=== PATIENT | female | born 1985 | race Caucasian/White ===

== ENCOUNTER 2021-05-17 16:39 | Emergency (ER) | payer SELFPAY ==
[~2021-05-17] VITALS: Ht 160 cm; Wt 63.5 kg
[2021-05-17 17:47] VITALS: BP 120/74
[2021-05-17] MEDS ORDERED: KETOROLAC 30 MG/ML VIAL IM ONE (18:05)
[2021-05-17] MEDS ORDERED: IBUP-1842 PO (18:49)
[2021-05-17] MEDS ORDERED: KETOROLAC 30 MG/ML VIAL ONE (19:20)
[2021-05-17 19:24] VITALS: BP 120/74
== END 2021-05-17 19:24 | disposition home or self-care (01) ==
LOC: MED 16:39
DX: S80.11XA Contusion of right lower leg, initial encounter (principal); M79.601 Pain in right arm; W18.39XA Other fall on same level, initial encounter; Y93.89 Activity, other specified; Y92.89 Other specified places as the place of occurrence of the external cause; Y99.8 Other external cause status
CPT/HCPCS: 72100; 73560; 73590; 81025; 96372; 99284; J1885

== ENCOUNTER 2021-12-15 17:40 | Emergency (ER) | payer MEDICAID ==
[~2021-12-15] VITALS: Ht 162.6 cm; Wt 67.1 kg
[~2021-12-15 17:40] MED LIST: IBUP-1842 PO
[2021-12-15 17:44] VITALS: BP 120/91
--- NOTE | 2021-12-15 17:50 | NUR ---
36 Y/O F AMBULATED TO BED 4, 11 WEEKS PREG, C/O N/V X2 DAYS WITH LIHTHEADEDNESS AND WEAK. PT STATED "SHE FEELS LIKE SHE IS GOING TO FALL OVER." PT PMH: [facility] MATH[facility]U
--- NOTE | 2021-12-15 18:12 | NUR ---
DR ODEN AT BEDSIDE FOR MSE
[2021-12-15] MEDS ORDERED: TETRACAINE HCL/PF 0.5% OPTH 4 ML BTL OP ONE (18:35)
[2021-12-15] MEDS ORDERED: METOCLOPRAMIDE 10 MG/2 ML INJ VIAL IVP ONE (18:35)
[2021-12-15] MEDS ORDERED: FLUORESCEIN OPTH STRIP 1 MG OP ONE (18:35)
[2021-12-15] MEDS ORDERED: diphenhydrAMINE 50 MG/ML VIAL IVP ONE (18:35)
[2021-12-15] MEDS ORDERED: NACL 0.9% 1,000 ML IV ONE (18:35)
[2021-12-15] MEDS ORDERED: ACETAMINOPHEN EXTRA STRENGTH 500 MG TAB PO ONE (18:35)
[2021-12-15 19:20] LABS: BASOPHILS % (AUTO) 0.2 % (0.0-2.0); EOSINOPHILS % (AUTO) 0.4 % (0.0-4.0); HEMATOCRIT 30.3 % (36-48); HEMOGLOBIN 9.6 g/dL (12.0-16.0); LYMPHOCYTES # (AUTO) 1.2 K/uL (2.5-16.5); LYMPHOCYTES % (AUTO) 19.1 % (20.5-51.1); MEAN CORPUSCULAR HEMOGLOBIN 23 pg (27-31); MEAN CORPUSCULAR HGB CONC 32 g/dL (33-37); MEAN CORPUSCULAR VOLUME 72.3 fL (80-94); MONOCYTES # (AUTO) 0.4 K/uL (0.8-1.0); MONOCYTES % (AUTO) 6.5 % (1.7-9.3); NEUTROPHILS # (AUTO) 4.5 K/uL (1.8-7.7); NEUTROPHILS % (AUTO) 73.8 % (42.2-75.2); PLATELET COUNT (AUTO) 235 K/uL (140-450); RED BLOOD CELL COUNT(AUTO) 4.19 MIL/uL (4.20-5.40); RED CELL DISTRIBUTION WIDTH 18.2 % (11.6-13.7); WHITE BLOOD COUNT (AUTO) 6.1 K/uL (4.8-10.8)
[2021-12-15 19:20] LABS: BILIRUBIN,URINE NEGATIVE (NEGATIVE); BLOOD, URINE NEGATIVE (NEGATIVE); COLOR,URINE YELLOW (YELLOW); LEUKOCYTE ESTERASE ,URINE 3+ (NEGATIVE); NITRITE, URINE NEGATIVE (NEGATIVE); PH,URINE 8.5 (5.0-9.0); UGLUCOSE NEGATIVE (NEGATIVE)
[2021-12-15 19:22] LABS: APPEARANCE,URINE CLOUDY (CLEAR)
--- NOTE | 2021-12-15 19:22 | NUR ---
Pt report given to CEE Wilson. Transfer of care at this time.
[2021-12-15 19:33] LABS: RBC,URINE 0-5 /HPF (0-5)
[2021-12-15 19:37] LABS: ANION GAP 15.1 (8-16); CARBON DIOXIDE 24.3 mmol/L (21-32); CREATININE 0.5 mg/dL (0.6-1.3); POTASSIUM 3.4 mmol/L (3.5-5.1)
[2021-12-15 19:42] LABS: ALBUMIN 3.7 g/dL (3.4-5.0); TOTAL BILIRUBIN 0.3 mg/dL (0.0-1.0)
[2021-12-15] MEDS ORDERED: diphenhydrAMINE 50 MG/ML VIAL ONE (19:54)
[2021-12-15] MEDS ORDERED: ACETAMINOPHEN EXTRA STRENGTH 500 MG TAB ONE (19:54)
[2021-12-15] MEDS ORDERED: FLUORESCEIN OPTH STRIP 1 MG ONE (19:55)
[2021-12-15] MEDS ORDERED: METOCLOPRAMIDE 10 MG/2 ML INJ VIAL ONE (19:55)
[2021-12-15] MEDS ORDERED: TETRACAINE HCL/PF 0.5% OPTH 4 ML BTL ONE (19:56)
[2021-12-15] MEDS ORDERED: cephALEXin 500 MG CAP PO ONE (20:00)
[2021-12-15] MEDS ORDERED: POTASSIUM CHLORIDE 10 MEQ TABER PO ONE (20:00)
--- NOTE | 2021-12-15 20:15 | NUR ---
Dr. Osborn examining patient.
[2021-12-15] MEDS ORDERED: DOXY1TCP PO (20:29)
[2021-12-15] MEDS ORDERED: CEPH-588 PO (20:29)
--- NOTE | 2021-12-15 20:33 | NUR ---
RESTING COMFORTABLY. DR ODEN AT BEDSIDE FOR EXAM
== END 2021-12-15 20:40 | disposition home or self-care (01) ==
LOC: MED 17:40
DX: O23.41 Unspecified infection of urinary tract in pregnancy, first trimester (principal); O99.011 Anemia complicating pregnancy, first trimester; O21.8 Other vomiting complicating pregnancy; O26.891 Other specified pregnancy related conditions, first trimester; E87.6 Hypokalemia; G43.909 Migraine, unspecified, not intractable, without status migrainosus; B02.9 Zoster without complications; Z3A.10 10 weeks gestation of pregnancy; Z79.899 Other long term (current) drug therapy
CPT/HCPCS: 36415; 80053; 81001; 81025; 83690; 84702; 85025; 87086; 96361; 96374; 96375; 99284; J1200; J2765; J7030

== ENCOUNTER 2023-05-15 14:18 | Emergency (ER) | payer MEDICAID, OTHER ==
[~2023-05-15] VITALS: Ht 162.6 cm; Wt 65.8 kg
[~2023-05-15 14:18] MED LIST changes: +CEPH-588 PO; +DOXY1TCP PO
[2023-05-15 14:32] VITALS: BP 126/72; PULSE 85; RESP 17; TEMP 97.7; O2SAT 98
[2023-05-15] MEDS ORDERED: KETOROLAC 30 MG/ML VIAL IM ONE (15:40)
[2023-05-15] MEDS ORDERED: GABA100C PO (15:49)
[2023-05-15] MEDS ORDERED: IBUP-2213 PO (15:49)
[2023-05-15] MEDS ORDERED: CYCL-711 PO (15:51)
== END 2023-05-15 17:56 | disposition home or self-care (01) ==
LOC: MED 14:18
DX: R20.2 Paresthesia of skin (principal); M25.531 Pain in right wrist; M25.521 Pain in right elbow; M25.511 Pain in right shoulder; Z79.899 Other long term (current) drug therapy
CPT/HCPCS: 29125; 81025; 96372; 99283; J1885

== ENCOUNTER 2023-12-06 15:06 | Emergency (ER) | payer OTHER ==
[~2023-12-06] VITALS: Ht 162.6 cm; Wt 63.5 kg
[~2023-12-06 15:06] MED LIST changes: +CYCL-711 PO; +GABA100C PO; +IBUP-2213 PO
[2023-12-06 15:40] VITALS: BP 101/77; PULSE 115; RESP 16; TEMP 98.3; O2SAT 98
[2023-12-06] MEDS: ONDANSETRON 4 MG ODT PO ONE (16:12)
[2023-12-06] MEDS: KETOROLAC 30 MG/ML VIAL IM ONE (16:16)
[2023-12-06] MEDS: DEXAMETHASONE 4 MG/ML VIAL PO ONE (16:44)
[2023-12-06] MEDS ORDERED: AMOX1TAB8 PO (16:54)
[2023-12-06] MEDS ORDERED: IBUP-2213 PO (16:54)
== END 2023-12-06 17:02 | disposition home or self-care (01) ==
LOC: MED 15:06
DX: J03.90 Acute tonsillitis, unspecified (principal); R11.2 Nausea with vomiting, unspecified; R51.9 Headache, unspecified; R00.0 Tachycardia, unspecified; Z79.899 Other long term (current) drug therapy
CPT/HCPCS: 81025; 87081; 96372; 99283; J1100; J1885; Q0162